=== PATIENT | female | born 1950 | race American Indian/Alaskan Native ===

== ENCOUNTER 2017-01-07 12:12 | Outpatient (CLI) | payer MEDICARE ==
--- NOTE | 2017-01-07 14:25 | Mammography Report ---
Screening mammogram: Routine views are obtained and compared to her prior examinations in 2015 2014. The patient has large fatty replaced breasts tissue bilaterally. No nodules and no architectural distortion. In the inferior lateral right breast there is a grouping of microcalcifications in a linear configuration. Compared to 2016 and appears slightly increased and are not identified in 2015. CAD used. Impression: Right breast calcifications. Recommendation: Magnification views of the right breast calcifications. BI-RADS CATEGORY: 0 = Needs additional imaging evaluation ACR BI-RADS MAMMOGRAPHIC CODES: 0 = Needs additional imaging evaluation; 1 = Negative; 2 = Benign; 3 = Probably benign; 4 = Suspicious; 5 = Malignant; 6 = Known biopsy-proven malignancy COMMENT: 1. Dense breast tissue, i.e., adenosis, fibrocystic changes, etc., may obscure an underlying neoplasm. 2. Approximately 10% of cancers are not detected with mammography. 3. A negative mammography report should not delay biopsy if a clinically suspicious mass is present.
== END 2017-01-07 12:13 | disposition home or self-care (01) ==
LOC: SPVWC 12:12
PROVIDERS: ATTEND Family Medicine
DX: Z12.31 Encounter for screening mammogram for malignant neoplasm of breast (principal)
CPT/HCPCS: 77067; G0202

== ENCOUNTER 2017-01-30 10:44 | Outpatient (CLI) | payer MEDICARE ==
--- NOTE | 2017-01-30 11:49 | Mammography Report ---
RIGHT DIGITAL DIAGNOSTIC MAMMOGRAM : 01/30/17 10:44:00 CLINICAL: Recall for calcifications. COMPARISON:01/07/17 FINDINGS: LM and CC magnification views demonstrate a group of outer calcifications with possibly no more than five calcifications in the group. The calcifications are in ductal distribution but there are no other suspicious features. No associated mass or architectural distortion. IMPRESSION: Probably benign calcifications. BI-RADS CATEGORY: 3 -- Probably Benign RECOMMENDATION: 6 month follow-up magnification views of the right breast. ACR BI-RADS MAMMOGRAPHIC CODES: 0 = Needs additional imaging evaluation; 1 = Negative; 2 = Benign; 3 = Probably benign; 4 = Suspicious; 5 = Malignant; 6 = Known biopsy-proven malignancy COMMENT: 1. Dense breast tissue, i.e., adenosis, fibrocystic changes, etc., may obscure an underlying neoplasm. 2. Approximately 10% of cancers are not detected with mammography. 3. A negative mammography report should not delay biopsy if a clinically suspicious mass is present. COMMENT: Patient follow-up letters are generated by our [employer] application.
== END 2017-01-30 10:45 | disposition home or self-care (01) ==
LOC: SPVWC 10:44
PROVIDERS: ATTEND Family Medicine
DX: R92.1 Mammographic calcification found on diagnostic imaging of breast (principal)
CPT/HCPCS: G0206-RT

== ENCOUNTER 2017-07-08 11:05 | Outpatient (CLI) | payer MEDICARE ==
--- NOTE | 2017-07-08 11:55 | Mammography Report ---
Right mammogram: Short-term followup for right breast calcifications. The calcifications are well evaluated in the CC projection on magnification views. Comparison is made her prior exam in January 2017 showing no interval change. The calcifications are less well-visualized in the lateral projection due to respiratory motion but appear grossly the same as previously noted. Impression: Stable right breast calcifications. Recommendation: Reevaluated in 6 months with routine screening mammography. BI-RADS CATEGORY: 3 = Probably benign ACR BI-RADS MAMMOGRAPHIC CODES: 0 = Needs additional imaging evaluation; 1 = Negative; 2 = Benign; 3 = Probably benign; 4 = Suspicious; 5 = Malignant; 6 = Known biopsy-proven malignancy COMMENT: 1. Dense breast tissue, i.e., adenosis, fibrocystic changes, etc., may obscure an underlying neoplasm. 2. Approximately 10% of cancers are not detected with mammography. 3. A negative mammography report should not delay biopsy if a clinically suspicious mass is present.
== END 2017-07-08 11:06 | disposition home or self-care (01) ==
LOC: SPVWC 11:05
PROVIDERS: ATTEND Family Medicine
DX: N64.89 Other specified disorders of breast (principal)

== ENCOUNTER 2018-03-22 11:27 | Emergency (ER) | payer MEDICARE ==
--- NOTE | 2018-03-22 11:57 | Emergency Department Report ---
ED Fall HPI - General Chief Complaint: Fall Stated Complaint: FALL/SLURRED SPEECH Time Seen by Provider: 03/22/18 11:41 Source: patient, EMS Mode of arrival: Stretcher Limitations: No Limitations - History of Present Illness Initial Comments: Patient said that while she was walking last night, her left knee buckled and she fell and hit the back of her head. She denies any LOC. C/O headache. -: Sudden, Last night Fall From: standing When Fall Occurred: other (Last night) Place Fall Occurred: home Loss of Consciousness: none Prolonged Down Time?: no Symptoms Prior to Fall: other (Left knee buckled) Location: head Severity: mild Severity scale (0 -10): 2 Quality: sharp Context: other (Lost balance) Associated Symptoms: headache - Related Data Previous Rx's Medication Instructions Recorded Last Taken Type Acetaminophen [Tylenol Extra 1,000 mg PO TID PRN #20 tablet 03/22/18 Unknown Rx Strength] Mupirocin [Bactroban 2%] 1 applic TP TID #1 tube 03/22/18 Unknown Rx Allergies Allergy/AdvReac Type Severity Reaction Status Date / Time Penicillins Allergy Unknown Verified 03/22/18 11:35 ED Review of Systems ROS: Stated complaint: FALL/SLURRED SPEECH Other details as noted in HPI Comment: All other systems reviewed and negative Constitutional: denies: chills, fever Eyes: denies: eye pain, eye discharge, vision change ENT: denies: ear pain, throat pain Respiratory: denies: cough, shortness of breath, wheezing Cardiovascular: denies: chest pain, palpitations Endocrine: no symptoms reported Gastrointestinal: denies: abdominal pain, nausea, diarrhea Genitourinary: denies: urgency, dysuria, discharge Musculoskeletal: denies: back pain, joint swelling, arthralgia Skin: other (scalp laceration.). denies: rash, lesions Neurological: headache. denies: weakness, paresthesias Psychiatric: denies: anxiety, depression Hematological/Lymphatic: denies: easy bleeding, easy bruising ED Past Medical Hx - Past Medical History Previous Medical History?: Yes Hx Hypertension: Yes Hx Asthma: Yes - Social History Smoking Status: Never Smoker - Medications Home Medications: Home Medications Medication Instructions Recorded Confirmed Last Taken Type Acetaminophen [Tylenol Extra 1,000 mg PO TID PRN #20 tablet 03/22/18 Unknown Rx Strength] Mupirocin [Bactroban 2%] 1 applic TP TID #1 tube 03/22/18 Unknown Rx ED Physical Exam - General Limitations: No Limitations General appearance: alert, in no apparent distress - Head Head exam: Present: other (3cm occipital scalp laceration.) - Eye Eye exam: Present: normal appearance, PERRL, EOMI Pupils: Present: normal accommodation - ENT ENT exam: Present: normal exam, normal orophraynx, mucous membranes moist - Neck Neck exam: Present: normal inspection, full ROM. Absent: tenderness - Respiratory Respiratory exam: Present: normal lung sounds bilaterally. Absent: respiratory distress, wheezes, rales, rhonchi - Cardiovascular Cardiovascular Exam: Present: regular rate, normal rhythm. Absent: systolic murmur, diastolic murmur, rubs, gallop - GI/Abdominal GI/Abdominal exam: Present: soft, normal bowel sounds. Absent: distended, tenderness, guarding, rebound - Extremities Exam Extremities exam: Present: normal inspection, full ROM, normal capillary refill. Absent: tenderness, calf tenderness - Back Exam Back exam: Present: normal inspection, full ROM - Neurological Exam Neurological exam: Present: alert, oriented X3, CN II-XII intact - Psychiatric Psychiatric exam: Present: normal affect, normal mood - Skin Skin exam: Present: warm, dry, intact, normal color. Absent: rash ED Course Vital Signs 03/22/18 11:40 Temperature 98.0 F Pulse Rate 80 Respiratory 18 Rate Blood Pressure 119/80 O2 Sat by Pulse 100 Oximetry - Reevaluation(s) Reevaluation #1: 03/22/18 14:40 Patient is feeling much better and ready to go home. - Laceration /Wound Repair Head Wound Location: head Wound Length (cm): 3 Wound's Depth, Shape: superficial, linear Wound Explored: no foreign body removed Irrigated w/ Saline (ccs): 50 Betadine Prep?: Yes Anesthesia: Lidocaine w/ Epi Volume Anesthetic (ccs): 5 Wound Debrided: No Wound Repaired With: sutures (4 staple stutures was used to repair the wound.) Sterile Dressing Applied?: No Progress: Patient tolerated the procedure well. No complication. ED Medical Decision Making - Lab Data Result diagrams: 03/22/18 11:45 03/22/18 11:45 Lab Results 0103/22/18 03/22/18 Range/Units 11:45 11:45 11:45 WBC 8.3 (4.5-11.0) K/mm3 RBC 4.77 (3.65-5.03) M/mm3 Hgb 14.0 (10.1-14.3) gm/dl Hct 41.7 (30.3-42.9) % MCV 88 (79-97) fl MCH 29 (28-32) pg MCHC 34 (30-34) % RDW 14.6 (13.2-15.2) % Plt Count 237 (140-440) K/mm3 Lymph % (Auto) 13.2 L (13.4-35.0) % [place] % (Auto) 9.4 H (0.0-7.3) % Eos % (Auto) 0.3 (0.0-4.3) % Baso % (Auto) 0.6 (0.0-1.8) % Lymph # 1.1 L (1.2-5.4) K/mm3 [place] # 0.8 (0.0-0.8) K/mm3 Eos # 0.0 (0.0-0.4) K/mm3 Baso # 0.0 (0.0-0.1) K/mm3 Seg Neutrophils % 76.5 H (40.0-70.0) % Seg Neutrophils # 6.3 (1.8-7.7) K/mm3 PT 13.9 (12.2-14.9) Sec. INR 1.03 (0.87-1.13) Sodium 139 (137-145) mmol/L Potassium 3.7 (3.6-5.0) mmol/L Chloride 98.1 (98-107) mmol/L Carbon Dioxide 29 (22-30) mmol/L Anion Gap 16 mmol/L BUN 10 (7-17) mg/dL Creatinine 0.8 (0.7-1.2) mg/dL Estimated GFR > 60 ml/min BUN/Creatinine Ratio 13 % Glucose 139 H (65-100) mg/dL Calcium 9.5 (8.4-10.2) mg/dL Total Bilirubin 0.90 (0.1-1.2) mg/dL AST 28 (5-40) units/L ALT 30 (7-56) units/L Alkaline Phosphatase 137 H (35-129) units/L Troponin T < 0.010 (0.00-0.029) ng/mL Total Protein 8.3 H (6.3-8.2) g/dL Albumin 3.8 L (3.9-5) g/dL Albumin/Globulin Ratio 0.8 % - EKG Data -: EKG Interpreted by Me EKG shows normal: sinus rhythm Rate: normal (83) - EKG Data When compared to previous EKG there are: previous EKG unavailable Interpretation: nonspecific ST-T wave tika 03/22/18 11:54 No STEMI. - Radiology Data Radiology results: report reviewed, image reviewed Critical care attestation.: If time is entered above; I have spent that time in minutes in the direct care of this critically ill patient, excluding procedure time. ED Disposition Clinical Impression: Thyromegaly Fall Qualifiers: Encounter type: initial encounter Qualified Code(s): W19.XXXA - Unspecified fall, initial encounter Head injury, acute Qualifiers: Encounter type: initial encounter Qualified Code(s): S09.90XA - Unspecified injury of head, initial encounter Occipital scalp laceration Qualifiers: Encounter type: initial encounter Qualified Code(s): S01.01XA - Laceration without foreign body of scalp, initial encounter Disposition: - TO HOME OR SELFCARE Is pt being admited?: No Does the pt Need Aspirin: No Condition: Stable Instructions: Suture Care (ED), Laceration (ED), Minor Head Injury (ED), Fall Prevention (ED), Thyroid Goiter (ED) Additional Instructions: Please follow up with your regular doctor or Dr De Anda in 3 days for wound check and further evaluation of your Thyroid Enlargement with an Ultrasound.. Return to the ED if your condition worsens. Prescriptions: Acetaminophen [Tylenol Extra Strength] 1,000 mg PO TID PRN #20 tablet PRN Reason: Headache Mupirocin [Bactroban 2%] 1 applic TP TID #1 tube Referrals: ZELALEM DE ANDA MD [Staff Physician] - 3-5 Days Time of Disposition: 14:39
[2018-03-22 12:19] LABS: Basophils % (Auto) 0.6 % (0.0-1.8); Eosinophils % (Auto) 0.3 % (0.0-4.3); Hematocrit 41.7 % (30.3-42.9); Lymphocytes # (Auto) 1.1 K/mm3 (1.2-5.4); Lymphocytes % (Auto) 13.2 % (13.4-35.0); Mean Corpuscular HGB Conc 34 % (30-34); Mean Corpuscular Volume 88 fl (79-97); Monocytes # (Auto) 0.8 K/mm3 (0.0-0.8); Monocytes % (Auto) 9.4 % (0.0-7.3); Platelet Count 237 K/mm3 (140-440); Red Blood Count 4.77 M/mm3 (3.65-5.03); Red Cell Distribution Width 14.6 % (13.2-15.2)
[2018-03-22 12:24] LABS: Alanine Aminotransferase 30 units/L (7-56); Albumin 3.8 g/dL (3.9-5); BUN/Creatinine Ratio 13; Blood Urea Nitrogen 10 mg/dL (7-17); Calcium 9.5 mg/dL (8.4-10.2); Hemolysis Index 16
[2018-03-22] MEDS ORDERED: BOOSTRIX IM ONE (12:35)
[2018-03-22 12:37] LABS: INR 1.03 (0.87-1.13)
--- NOTE | 2018-03-22 12:46 | Cat Scan Report ---
FINAL REPORT EXAM: CT HEAD/BRAIN WO CON HISTORY: Syncope. Pt fell and hit the back of her head. TECHNIQUE: CT of the head was performed without intravenous contrast. PRIORS: None. FINDINGS: The ventricles are normal in shape and position. The ventricles are nondilated. No intracranial hemo rrhage, mass, mass effect, midline shift or evidence of acute ischemic infarct. The basilar cisterns are patent. The paranasal sinuses are clear. The extracranial soft tissues demonstrate no abnormality. The calvar ium is intact. The orbits are intact. The mastoid air cells are clear. IMPRESSION: No acute intracranial abnormality.
[2018-03-22 12:47] LABS: Creatine Kinase MB < 1.0 ng/mL (0.0-4.0)
--- NOTE | 2018-03-22 12:52 | Cat Scan Report ---
FINAL REPORT EXAM: CT CERVICAL SPINE WO CON HISTORY: Syncope. Pt fell and hit the back of her head. TECHNIQUE: CT of the cervical spine was performed without intravenous contrast. Reconstructions were included in the coronal and sagittal planes. PRIORS: None. FINDINGS: No cervical spine fracture or subluxation. The prevertebral soft tissues are normal. Multilevel degenerative changes of the cervical spine are seen with mild multilevel neural foraminal narrowing. No spinal stenosis. Thyroid gland is diffusely enlarged and heterogeneous. IMPRESSION: 1. No acute cervical spine abnormality. 2. Multilevel degenerative changes of the cervical spine. 3. Diffusely enlarged and heterogeneous thyroid gland. Recommend further evaluation with thyroid ultr asound to exclude underlying nodules.
[2018-03-22] MEDS ORDERED: XYLOCAINE 1%/ EPI 1:100,000 INFILTRATI NR (13:00)
[2018-03-22] MEDS ORDERED: TYLENOL ONE (13:37)
[2018-03-22] MEDS ORDERED: TYLENOL PO ONE (13:45)
--- NOTE | 2018-03-22 13:54 | XRay Report ---
FINAL REPORT EXAM: XR CHEST 1V AP HISTORY: Syncope TECHNIQUE: Chest, portable upright PRIORS: None. FINDINGS: The heart size is normal. Pulmonary vasculature is not congested. The lungs are clear. There are no pleural effusion seen. There is no evidence of pneumothorax. IMPRESSION: There is no acute abnormality identified.
[2018-03-22 14:41] VITALS: BP 128/62
== END 2018-03-22 15:04 | disposition home or self-care (01) ==
LOC: ED 11:27
DX: S09.90XA Unspecified injury of head, initial encounter (principal); S01.01XA Laceration without foreign body of scalp, initial encounter; E01.0 Iodine-deficiency related diffuse (endemic) goiter; I10 Essential (primary) hypertension; E11.9 Type 2 diabetes mellitus without complications; Z88.0 Allergy status to penicillin; W18.30XA Fall on same level, unspecified, initial encounter; Y93.01 Activity, walking, marching and hiking; Y99.8 Other external cause status; Y92.89 Other specified places as the place of occurrence of the external cause
CPT/HCPCS: 36415; 70450; 71045; 72125; 80053; 82550; 82553; 84439; 84443; 84484; 85025; 85610; 90471; 90715; 93005; 93010